=== PATIENT | male | born 2000 | race Caucasian/White ===

== ENCOUNTER 2019-06-11 07:45 | Outpatient (CLI) | payer BC, SELFPAY ==
--- NOTE | 2019-06-11 08:10 | MR_ITS ---
WS: [id number] MRI LEFT KNEE NONCONTRAST TECHNIQUE: Axial PD, coronal PD fat sat, coronal PD, sagittal PD, and sagittal PD fat-sat images obta ined. CLINICAL INFORMATION: PAIN IN LEFT KNEE COMPARISON: None. FINDINGS: Distal quadriceps and patella tendons are intact. No significant joint effusion. Trace prepatellar ed spike. Small amount of edema in the underlying patella. Anterior and posterior cruciate ligaments are intact. Lateral meniscus is normal. Intrasubstance sign al abnormality with horizontal tear extending into the posterior horn medial meniscus. This extends t o the articular surface. Normal medial and lateral collateral ligaments. No significant chondromalacia patella. Tiny popliteal cyst measuring 9.6 x 7.3 x 1.6 cm. MR/MR knee LT wo con* [id number] IMPRESSION: 1. Anterior and posterior cruciate ligaments are intact. 2. T2 signal abnormality involving the posterior horn medial meniscus extendin g to the articular surface with horizontal tear. 3. Small amount of prepatellar soft tissue edema with a small amount of edema in the underlying patella may be due to contusion or reactive edema. 4. Small popliteal cyst measuring 9.6 x 7.3 x 1.6 cm.
--- NOTE | 2019-06-11 08:28 | XR_ITS ---
WS: [id number] KNEE LEFT TECHNIQUE: 2 views of the left knee CLINICAL INFORMATION: PAIN IN LEFT KNEE COMPARISON: None. FINDINGS: Normal anatomic alignment. Small suprapatellar effusion. Normal patella. No acute fractures. Medial a nd lateral joint compartments appear well preserved. XR/XR knee LT 1-2V [id number] IMPRESSION: Small suprapatellar effusion. No acute fractures.
== END 2019-06-11 07:46 | disposition home or self-care (01) ==
LOC: RADWPI 08:00
PROVIDERS: PCP Family Medicine; Visit Provider Family Medicine
DX: M25.562 Pain in left knee (principal); M71.22 Synovial cyst of popliteal space [Baker], left knee
CPT/HCPCS: 73560; 73721

== ENCOUNTER 2019-10-18 14:55 | Emergency (ER) | payer BC, SELFPAY ==
[2019-10-18 14:58] VITALS: BP 159/77; PULSE 123; RESP 18; TEMP 37.7; O2SAT 100; BMI 21.9
[2019-10-18 15:11] VITALS: BP 159/77; PULSE 104; RESP 19; TEMP 37.7; O2SAT 100
--- NOTE | 2019-10-18 15:43 | ECG_ITS ---
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 Measurements Intervals [place] Rate: 86 P: 68 [place]: 154 QRS: 76 QRSD: 99 T: 42 QT: 314 QTc: 377 Interpretive Statements SINUS RHYTHM POSSIBLE LEFT ATRIAL ENLARGEMENT [-0.1mV P WAVE IN V1/V2] INCOMPLETE RIGHT BUNDLE BRANCH BLOCK [90+ ms QRS DURATION, TERMINAL R IN V1/V2, 40+ ms S IN I/aVL/V4/V5/V6] No previous ECG available for comparison Electronically Signed On 10-18-2019 18:18:48 CDT by Nahun Escalante M.D. [email or web address]
--- NOTE | 2019-10-18 15:43 | XRR_ITS ---
PROCEDURE INFORMATION: Exam: XR Chest, 1 View Exam date and time: 10/18/2019 4:06 PM Age: 19 years old Clinical indication: Cough and fever; Patient HX: Covid precautions; Additional info: Cough, fevers TECHNIQUE: Imaging protocol: XR of the chest Views: 1 view. COMPARISON: No relevant prior studies available. FINDINGS: Lungs: Unremarkable. No consolidation. Pleural space: Unremarkable. No pleural effusion. No pneumothorax. Heart/Mediastinum: Unremarkable. No cardiomegaly. Bones/joints: Unremarkable. XR/XR chest 1V portable [id number] IMPRESSION: No acute findings.
--- NOTE | 2019-10-18 15:43 | US_ITS ---
WS: [id number] ULTRASOUND SOFT TISSUES RIGHT neck. HISTORY: swelling R neck COMPARISON: None available. TECHNIQUE: 2-D and color Doppler imaging is submitted. Abnormal lymph nodes in the RIGHT lateral neck. Lymph nodes are enlarged with increased vascularity i n the periphery. Replacement of the normal fatty hilum. Largest lymph nodes measure around 3.4 cm. US/US soft tissue head neck [id number] IMPRESSION: RIGHT neck lymphadenopathy. Etiologies consider are neoplasm such as lymphoma o r reactive lymph nodes from an infectious process such as lymphadenitis.
--- NOTE | 2019-10-18 15:45 | W.ED.FEVER ---
HPI - Fever General: Chief Complaint: Fever Stated Complaint: lump on neck right Time Seen by Provider: 10/18/19 15:03 Source: patient Mode of arrival: ambulatory Limitations: no limitations History of Present Illness: HPI Narrative: Patient is a 19-year-old male who presents to the ED today at the request of his primary care provider. According to patient he was seen by primary care today and based on symptoms they swabbed him for COVID. During exam they noticed swelling to the right side of patient's neck so was sent to the emergency department for further evaluation. Patient tells me over the last few days he has been running fevers as high as 103, had body aches, generalized malaise, sore throat, congestion, and a cough. He denies abdominal pain, nausea, vomiting. 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 He does not complain of any shortness of breath or difficulty breathing at this time. Associated symptoms: Reports nasal congestion; Deny abdominal pain, flank pain, chest pain, diarrhea, dysuria, headache(s), nausea or vomiting Review of Systems Const: Reports: fever(s), body aches, fatigue and malaise Eyes: Denies: change in vision, blurry vision, photophobia, floaters or seeing flashes ENMT: Reports: throat pain, odynophagia and nasal congestion; Denies: uvular edema, enlarged tonsils, ear or mastoid pain, tinnitus or nasal discharge Card: Denies: chest pain Resp: Reports: non-productive cough; Denies: dyspnea, productive cough, hemoptysis or chest congestion GI: Denies: abdominal pain, nausea, vomiting or diarrhea : Denies: flank pain, difficulty urinating, dysuria, urinary frequency, urinary urgency or urinary hesitancy Musc: Reports: neck pain (swelling); Denies: back pain Neuro: Denies: headache(s), numbness in extremities, weakness in extremities or sensory changes Physical Exam Const: COMMON NORMALS: no acute distress, average body habitus, patient oriented x3, no limitations, healthy appearing, alert and well nourished HENMT: COMMON NORMALS: normocephalic, atraumatic, hearing grossly normal bilaterally, external ears normal, EAC's normal, Normal external nose present, Normal nasal mucous membranes and turbinates present, moist oral mucous membranes, oropharynx normal, dentition normal and gingiva normal HEAD & SCALP: normal to inspection, normocephalic and atraumatic FACE & SINUS: sinuses nontender NOSE: Normal external nose present and Normal nasal mucous membranes and turbinates present EXTERNAL EAR: Yes external ears normal and Yes mastoids normal EXTERNAL AUDITORY CANAL: EAC's normal TYMPANIC MEMBRANE: TM abnormal (serous otitis bilaterally ) MOUTH: Normal oral and palatal mucosa present, lip normal and tongue normal THROAT: posterior oropharynx normal, tonsils normal and uvula midline; no uvular edema Eye: COMMON NORMALS: Equal, round and reactive pupils present, EOMs intact bilaterally, conjunctivae normal and no scleral icterus GENERAL EYE: appearance normal, both eyes and all related structures CONJUNCTIVA: Yes conjunctivae normal PUPIL: Yes Equal, round and reactive pupils present Neck/C-Spine: COMMON NORMALS: full ROM and no meningeal signs OTHER: patient has localized swelling to R mid lateral neck-appears this is a lymph node although it is rather large measuring 3cm x 1.5cm; there is no redness, fluctuance, bites/scrapes/signs of trauma NECK IMAGES: 1. swelling Chest: COMMONS NORMALS: normal inspection of the chest and normal palpation of entire chest wall Resp: COMMON NORMALS: normal respiratory effort and clear to auscultation bilaterally AUSCULTATION: clear to auscultation bilaterally Cardio: COMMON NORMALS: regular rhythm RATE: tachycardic (mild) RHYTHM: regular rhythm GI: COMMON NORMALS: Normal to inspection, nondistended, normoactive bowel sounds present, Soft to palpation, non-tender, No hepatosplenomegaly present and no masses PALPATION: Yes Soft to palpation and Yes No hepatosplenomegaly present Extremity: COMMON NORMALS: normal to inspection Neuro: COMMON NORMALS: patient oriented x3 SENSORIUM/ORIENTATION: Yes alert MENINGEAL SIGNS: Yes no meningeal signs Skin: COMMON NORMALS: no rashes or lesions noted GENERAL SKIN EXAM: no rashes or lesions noted Course Vital Signs: Vital signs: Vital Signs Temperature 101.6 F H 10/18/19 17:15 Pulse Rate 97 10/18/19 17:15 Respiratory Rate 18 10/18/19 17:15 Blood Pressure 134/67 10/18/19 17:15 Pulse Oximetry 100 10/18/19 17:15 MDM - Fever MDM Narrative: Medical decision making narrative: pt has COVID test pending through PCP-recommend quarantine until he gets results. Labs overall today are non-concerning. CXR is normal. He does have several enlarged lymph nodes to his right neck the largest being 3.4 cm. Differential including neoplasm such as lymphoma or reactive lymphadenopathy from infectious process. Given patient's other viral symptoms this is most likely reactive. Spoke to Dr. Lassiter about the need for possible antibiotics. He states at this time he would hold off and treat conservatively for viral illness. Return to ED precautions given. We did discuss follow-up for lymph node if it does not subside in the next 1 to 2 weeks. Lab Data: Labs: Lab Results 10/18/19 10/18/19 10/18/19 Range/Units 16:10 16:12 16:12 WBC 9.0 (4.5-13.0) 10^3/ uL RBC 4.76 (4.1-5.3) 10^6/u L Hgb 14.0 (11.7-16.6) g/dL Hct 42.4 (42.0-52.0) % MCV 89.1 (80-94) fL MCH 29.4 (28.0-34.0) pg MCHC 33.0 (30.0-36.0) g/dL RDW 12.3 (12.1-15.1) % Plt Count 210 (130-400) 10^3/c mm MPV 9.7 (7.4-10.4) fL Neut % (Auto) 70.3 % Lymph % (Auto) 13.6 % [place] % (Auto) 15.6 % Eos % (Auto) 0.0 % Baso % (Auto) 0.4 % Neut # (Auto) 6.33 (1.8-8.0) 10^3/u L Lymph # (Auto) 1.2 L (1.5-6.5) 10^3/u L [place] # (Auto) 1.4 H (0.2-0.9) 10^3/u L Eos # (Auto) 0.0 (0.0-0.8) 10^3/u L Baso # (Auto) 0.0 (0.0-0.1) 10^3/u L Nucleated RBC % (a uto) 0 % Nucleated RBCs # 0.0 /100WBC Sodium 135 L (136-145) mmol/L Potassium 3.9 (3.5-5.1) mmol/L Chloride 99 (98-107) mmol/L Carbon Dioxide 25 (22-29) mmol/L Anion Gap 14.9 (5-19) BUN 6 (6-20) mg/dL Creatinine 1.0 (0.7-1.2) mg/dL GFR Calculation 95.3 (90-130) mL/min Glucose 102 (65-115) mg/dL Calculated Osmolal ity 276 L (285-295) mOsm/k g Lactic Acid (0.5-2.2) mmol/L Calcium 9.6 (8.5-10.5) mg/dL Total Bilirubin 0.5 (0.15-1.2) mg/dL AST 15 (0-40) U/L ALT 16 (0-41) U/L Alkaline Phosphata se 56 (40-130) IU/L C-Reactive Protein 10.3 H (0.0-4.9) mg/L Total Protein 8.0 (6.6-8.7) g/dL Albumin 5.0 (3.5-5.2) g/dL Globulin 3.0 (1.3-4.6) g/dL Influenza Type A A g Negative (Negative) Influenza Type B A g Negative (Negative) 10/18/19 Range/Units 16:12 WBC (4.5-13.0) 10^3/ uL RBC (4.1-5.3) 10^6/u L Hgb (11.7-16.6) g/dL Hct (42.0-52.0) % MCV (80-94) fL MCH (28.0-34.0) pg MCHC (30.0-36.0) g/dL RDW (12.1-15.1) % Plt Count (130-400) 10^3/c mm MPV (7.4-10.4) fL Neut % (Auto) % Lymph % (Auto) % [place] % (Auto) % Eos % (Auto) % Baso % (Auto) % Neut # (Auto) (1.8-8.0) 10^3/u L Lymph # (Auto) (1.5-6.5) 10^3/u L [place] # (Auto) (0.2-0.9) 10^3/u L Eos # (Auto) (0.0-0.8) 10^3/u L Baso # (Auto) (0.0-0.1) 10^3/u L Nucleated RBC % (a uto) % Nucleated RBCs # /100WBC Sodium (136-145) mmol/L Potassium (3.5-5.1) mmol/L Chloride (98-107) mmol/L Carbon Dioxide (22-29) mmol/L Anion Gap (5-19) BUN (6-20) mg/dL Creatinine (0.7-1.2) mg/dL GFR Calculation (90-130) mL/min Glucose (65-115) mg/dL Calculated Osmolal ity (285-295) mOsm/k g Lactic Acid 1.2 (0.5-2.2) mmol/L Calcium (8.5-10.5) mg/dL Total Bilirubin (0.15-1.2) mg/dL AST (0-40) U/L ALT (0-41) U/L Alkaline Phosphata se (40-130) IU/L C-Reactive Protein (0.0-4.9) mg/L Total Protein (6.6-8.7) g/dL Albumin (3.5-5.2) g/dL Globulin (1.3-4.6) g/dL Influenza Type A A g (Negative) Influenza Type B A g (Negative) Imaging Data^: US soft tissue neck : Radiologist's impression: [place] [address] Ultrasound Report Signed Patient: Chavo Ratliff Unit #: [id number] : 2000 Age/Sex: 19 / M ADM Date: 10/18/19 Loc: ER Room/Bed: Attending Dr: Ordering Provider/Ordering MD: Zaria Nicolas Date of Service: 10/18/19 Procedure(s): US soft tissue head neck [id number] Accession Number(s): [id number] Report Number: [id number] WS: [id number] ULTRASOUND SOFT TISSUES RIGHT neck. HISTORY: swelling R neck COMPARISON: None available. TECHNIQUE: 2-D and color Doppler imaging is submitted. Abnormal lymph nodes in the RIGHT lateral neck. Lymph nodes are enlarged with increased vascularity in the periphery. Replacement of the normal fatty hilum. Largest lymph nodes measure around 3.4 cm. US/US soft tissue head neck [id number] IMPRESSION: RIGHT neck lymphadenopathy. Etiologies consider are neoplasm such as lymphoma or reactive lymph nodes from an infectious process such as lymphadenitis. Dictated By: Jennifer Velasquez DO Signed By: Jennifer Velasquez DO Signed Date/Time: 10/18/19 1638 DD/ 1636 CXR: Radiologist's impression: [address] [address] XRay Report Signed Patient: Chavo Ratliff Unit #: [id number] : 2000 Age/Sex: 19 / M ADM Date: 10/18/19 Loc: ER Room/Bed: Attending Dr: Ordering Provider/Ordering MD: Zaria Nicolas Date of Service: 10/18/19 Procedure(s): XR chest 1V portable [id number] Accession Number(s): [id number] Report Number: [id number] PROCEDURE INFORMATION: Exam: XR Chest, 1 View Exam date and time: 10/18/2019 4:06 PM Age: 19 years old Clinical indication: Cough and fever; Patient HX: Covid precautions; Additional info: Cough, fevers TECHNIQUE: Imaging protocol: XR of the chest Views: 1 view. COMPARISON: No relevant prior studies available. FINDINGS: Lungs: Unremarkable. No consolidation. Pleural space: Unremarkable. No pleural effusion. No pneumothorax. Heart/Mediastinum: Unremarkable. No cardiomegaly. Bones/joints: Unremarkable. XR/XR chest 1V portable [id number] IMPRESSION: No acute findings. Dictated By: John Giraldo Signed By: John Giraldo Signed Date/Time: 10/18/19 1643 DD/ 1641 Discharge Plan Discharge Patient Disposition: Home Clinical Impression: Nonspecific syndrome suggestive of viral illness, Acute lymphadenitis of neck Condition: Stable Discharge Orders: Discharge Order (Routine); Ordered 10/18/19 Ordered By: Zaria Nicolas Referrals: Sally Rivera MD [Primary Care Provider] - Patient Instructions: Lymphadenitis, Viral Syndrome (ED) Activity Restrictions/Additional Instructions: As discussed you need to quarantine at home until you get called with your COVID results. Even if negative, if you are still experiencing fevers you need to stay at home until you are fever free for 24 hours without medications. You may use Tylenol and/or ibuprofen to help with fevers and body aches. Please follow-up with Dr. Rivera in approximately a week for reevaluation of the swollen lymph node in your neck. Discharge Date/Time: 10/18/19 17:15 Coding Level of Care Code ED Grain Grader for Chg Fwd Exam Comprehensive
[2019-10-18 16:03] VITALS: BP 138/70; PULSE 78; RESP 19; O2SAT 100
[2019-10-18 16:21] LABS: Basophils % 0.4 %; Hematocrit 42.4 % (42.0-52.0); Lymphocytes # 1.2 10^3/uL (1.5-6.5); Lymphocytes % 13.6 %; Mean Corpuscular Hemoglobin 29.4 pg (28.0-34.0); Mean Corpuscular Volume 89.1 fL (80-94); Mean Platelet Volume 9.7 fL (7.4-10.4); Monocytes # 1.4 10^3/uL (0.2-0.9); Monocytes % 15.6 %; Neutrophils # 6.33 10^3/uL (1.8-8.0); Neutrophils % 70.3 %; Nucleated Red Blood Cells % 0 %; Platelet Count 210 10^3/cmm (130-400); Red Blood Count 4.76 10^6/uL (4.1-5.3); Red Cell Distribution Width 12.3 % (12.1-15.1)
[2019-10-18 16:30] VITALS: BP 139/64; PULSE 78; RESP 20; O2SAT 100
[2019-10-18 16:38] LABS: Alanine Aminotransferase 16 U/L (0-41); Alkaline Phosphatase 56 IU/L (40-130); Anion Gap 14.9 (5-19); Aspartate Amino Transferase 15 U/L (0-40); Blood Urea Nitrogen 6 mg/dL (6-20); C Reactive Protein 10.3 mg/L (0.0-4.9); Calcium 9.6 mg/dL (8.5-10.5); Carbon Dioxide 25 mmol/L (22-29); Chloride 99 mmol/L (98-107); Glomerular Filtration Rate 95.3 mL/min (90-130); Glucose 102 mg/dL (65-115); Osmolality Calculated 276 mOsm/kg (285-295); Potassium 3.9 mmol/L (3.5-5.1); Sodium 135 mmol/L (136-145); Total Bilirubin 0.5 mg/dL (0.15-1.2)
[2019-10-18 16:39] LABS: Lactic Sepsis W/Reflex 1.2 mmol/L (0.5-2.2)
[2019-10-18 16:56] LABS: Influenza A by IFA Negative (Negative); Influenza B by IFA Negative (Negative)
[2019-10-18 17:00] VITALS: BP 134/67; PULSE 91; RESP 18; O2SAT 97
[2019-10-18 17:15] VITALS: BP 134/67; PULSE 97; RESP 18; TEMP 38.7; O2SAT 100
== END 2019-10-18 17:15 | disposition home or self-care (01) ==
PROVIDERS: Emergency Provider Physician Assistant; PCP Family Medicine
DX: L04.0 Acute lymphadenitis of face, head and neck (principal)
CPT/HCPCS: 12345; 71045; 76536; 80053; 83605; 85025; 86140; 87804; 93005; 93010; 99282; 99283